=== PATIENT | female | born 1985 | race Caucasian/White ===

== ENCOUNTER → 2017-04-02 | Outpatient (CLI) | payer OTHER ==
[~2017-04-02] MED LIST: MOTRIN-DPS800 MG PO; NIPPLECREAM TP; PRENATAL VIT1 TAB PO; PRIMROSE OIL PO; TUMS DPS500 MG PO; TYLENOL #3 DPS1 TAB PO
== END | disposition home or self-care (01) ==
LOC: RAD.S 14:46
DX: N63 Unspecified lump in breast (principal)